=== PATIENT | male | born 1960 | race Caucasian/White ===

== ENCOUNTER → 2021-06-14 | Outpatient (REF) ==
[~2021-06-14] MED LIST: OXYC-12 PO
--- NOTE | 2021-06-14 12:12 | Diagnostic Imaging Report ---
INDICATION: Left elbow pain. FINDINGS: Three views of the left elbow show a fracture of the apophysis of the olecranon process of the proximal ulna. There is 2 mm of diastasis. IMPRESSION: Fracture of the apophysis of the olecranon process. Dictated by: Dictated on workstation # [id number]
== END ==
LOC: OCC 11:21
PROVIDERS: ATTEND Family Medicine
DX: M25.522 Pain in left elbow (principal)
CPT/HCPCS: 73080